=== PATIENT | female | born 1985 | race Caucasian/White ===

== ENCOUNTER 2018-08-22 10:13 | Day surgery (SDC) | payer MEDICAID ==
[2018-08-19 12:16] LABS: BASOPHILS 0.2 % (0-2); EOSINOPHILS 1.9 % (0-7); HEMATOCRIT 43.2 % (36.0-48.0); HEMOGLOBIN 15.1 g/dL (12-16); IMMATURE GRANULOCYTES 0.3 % (0-5); LYMPHOCYTES 30.6 % (15-50); MCH 31.4 pg (26.0-34.0); MCV 89.8 fL (80.0-100.0); MONOCYTES 9.7 % (2-11); NEUTROPHILS 57.3 % (40-80); RBC 4.81 10x6/uL (4.00-5.40); RDW 14.9 % (11.5-14.5); WBC 9.5 10x3/uL (4.8-10.8)
[2018-08-19 12:17] LABS: PLATELET COUNT 307 10x3/uL (130-400)
[~2018-08-22] VITALS: Ht 162.6 cm; Wt 88.9 kg
--- NOTE | ~2018-08-22 | OP ---
PATIENT NAME: MARILU MARIN MEDICAL RECORD: [id number] LOCATION:D[facility] ADMISSION DATE: SURGEON: JOSE AGUSTIN MD DATE OF OPERATION: 08/22/2018 PREOPERATIVE DIAGNOSIS: Undesired fertility. POSTOPERATIVE DIAGNOSIS: Undesired fertility. PROCEDURE: Bilateral salpingectomy. SURGEON: Jose Agustin MD SEX OFFENDER TREATMENT PROFESSIONAL: Yunior Cox ANESTHESIOLOGIST: Donato Torrez MD ANESTHETIC: General. FINDINGS: Uterus, tubes, and ovaries are unremarkable. SPECIMENS REMOVED: Tubes bilaterally. SPECIMEN DISPOSITION: Pathology. ESTIMATED BLOOD LOSS: Minimal. FLUIDS: 600 cc of lactated Ringer. URINE OUTPUT: Quantity sufficient void prior to this procedure. COMPLICATIONS: None. DRAINS: None. INDICATIONS: The patient is a 32-year-old female with undesired fertility. The patient has been given risks and benefits as well as alternatives to salpingectomy. The patient understands all risks and benefits and wishes to proceed. DESCRIPTION OF PROCEDURE: After informed consent was assured, the patient was taken to the operating room, where anesthetic was obtained without difficulty. The patient was then prepped and draped in usual sterile fashion. An incision was made at the umbilicus to accommodate a 5-mm trocar, which was inserted without difficulty, and pneumoperitoneum was developed. Accessory ports were now placed in midline and right lower quadrant. The midline port was 12 port and the right lower quadrant port was 5 mm. Then, with the patient in Trendelenburg position, the left tube was elevated. Using the Thunderbeat coagulation cutter, starting at the cornual region, the tube was removed. This dissection was carried down over the antimesenteric portion and included above the ovary. This tube was removed from the midline trocar. Attention was now directed to the right tube. From the midline, the right tube was elevated, and starting laterally, the antimesenteric tissues were compressed, coagulated, and from the cornual region and the tube was removed. The tube was taken out of the pelvis through the 12-mm port. Inspection of the operative field OPERATIVE REPORT [id number] MARILU MARIN revealed adequate hemostasis. Pneumoperitoneum was released and the trocars were removed. The skin sites were closed with subcuticular stitch and Dermabond was applied. TRANSINT:[id number] Voice Confirmation ID: [id number] DOCUMENT ID: [id number] JOSE AGUSTIN MD CC: [id number] DICTATION DATE: 08/22/18 1645 HOSPICE SUPERINTENDENT: 08/22/18 1842 [place] [id number] [place] [id number]
[2018-08-22 09:59] VITALS: BP 138/89; Ht 162.6 cm; Wt 88.9 kg
[~2018-08-22 10:13] MED LIST: BUSPIRONE HCL7.5 MG PO
[2018-08-22 10:31] LABS: HCG URINE NEGATIVE (NEGATIVE)
--- NOTE | 2018-08-22 17:42 | NUR ---
1740 ASSISSTED UP TO BR VOIDS QS. FL DIET SERVED. SPOUSE AT SIDE.
== END 2018-08-22 18:35 | disposition home or self-care (01) ==
LOC: D.OPS 10:13
PROVIDERS: ATTEND Obstetrics & Gynecology
DX: Z30.2 Encounter for sterilization (principal); Z01.812 Encounter for preprocedural laboratory examination

== ENCOUNTER → 2018-09-08 14:19 | Outpatient (CLI) | payer MEDICAID ==
[2018-08-22 09:59] VITALS: BMI 33.7
== END | disposition home or self-care (01) ==
LOC: D.RAD 14:19
PROVIDERS: ATTEND Nurse Practitioner Family
DX: S93.601A Unspecified sprain of right foot, initial encounter (principal)